=== PATIENT | female | born 1985 | race Caucasian/White ===

== ENCOUNTER 2020-06-25 18:40 | Inpatient (IN) | payer OTHER ==
[2020-06-25 19:02] VITALS: BMI 30.1
[2020-06-25] MEDS ORDERED: DEXTROSE 5%-LACTATED RINGERS 1,000 ML IV SCH (20:30)
[2020-06-25] MEDS ORDERED: OXYTOCIN 30 UNITS in 0.9% NS 30 UNIT/500 ML INFUS.BAG IVPB SCH (20:30)
[2020-06-25 20:55] LABS: BASO % 0.3 % (0-2.0); EOS % 0.4 % (0-4.5); HEMATOCRIT 33.5 % (32.4-45.2); HEMOGLOBIN 11.4 GM/dL (10.7-15.3); LYMPH % 11.9 % (8-40); MCH 31.1 pg (25.7-33.7); MEAN CELL VOLUME 91.4 fl (80-96); MEAN PLT VOLUME 8.7 fl (7.5-11.1); MONO % 5.6 % (3.8-10.2); NEUT % 81.8 % (42.8-82.8); PLATELET COUNT 282 K/MM3 (134-434); RBC 3.67 M/mm3 (3.60-5.2); RDW 13.2 % (11.6-15.6); WHITE BLOOD COUNT 10.8 K/mm3 (4.0-10.0)
[2020-06-25] MEDS ORDERED: OXYTOCIN 30 UNITS in 0.9% NS 30 UNIT/500 ML INFUS.BAG IVPB ONE (20:55)
[2020-06-25 21:02] LABS: INR 0.93 (0.83-1.09); PROTHROMBIN TIME (PATIENT) 11.5 SEC (9.7-13.0)
[2020-06-25 21:05] LABS: ACTIVATED PTT 24.4 SECONDS (25.2-36.5)
[2020-06-25 21:19] LABS: POTASSIUM 3.9 mmol/L (3.5-5.1)
[2020-06-25 21:22] LABS: CALCIUM 9.2 mg/dL (8.5-10.1)
[2020-06-25 21:23] LABS: BLOOD UREA NITROGEN 12.1 mg/dL (7-18)
[2020-06-25 21:26] LABS: CREATININE 0.6 mg/dL (0.55-1.3)
[2020-06-26] MEDS ORDERED: PROMETHAZINE HCL 25 MG/1 ML VIAL IVPB ONE (00:30)
[2020-06-26] MEDS ORDERED: BUTORPHANOL TARTRATE 2 MG/ML VIAL IVPB ONE (00:30)
[2020-06-26] MEDS ORDERED: BUTORPHANOL TARTRATE 2 MG/ML VIAL ONE (00:36)
[2020-06-26] MEDS ORDERED: AMPICILLIN SODIUM 2 GM VIAL ONE (00:36)
[2020-06-26] MEDS ORDERED: PROMETHAZINE HCL 25 MG/1 ML VIAL ONE (00:36)
[2020-06-26] MEDS ORDERED: AMPICILLIN - 2 GM in SODIUM CHLORIDE 100 ML IVPB ONE (00:45)
[2020-06-26] MEDS ORDERED: AMPICILLIN SODIUM 1 GM VIAL ONE ×2 (04:44→08:31)
[2020-06-26] MEDS: AMPICILLIN - 1 GM in DEXTROSE 5%-WATER 100 ML IVPB SCH ×2 (04:45→08:35)
[2020-06-26] MEDS ORDERED: PCA PUMP NR ONE ×2 (05:17→11:09)
[2020-06-26] MEDS ORDERED: FENTANYL/BUPIVACAINE/NS/PF - PCEA - 50 ML DISP.SYRIN EP ONE (05:17)
[2020-06-26] MEDS ORDERED: FENTANYL/BUPIVACAINE/NS/PF - PCEA - 50 ML DISP.SYRIN EP SCH (05:30)
[2020-06-26] MEDS ORDERED: NALOXONE HCL 0.4 MG/ML VIAL IVPUSH PRN (05:30)
[2020-06-26] MEDS ORDERED: BUPIVACAINE HCL/PF 0.25% (2.5MG/ML) 10 ML VIAL ONE (05:33)
[2020-06-26] MEDS ORDERED: OXYTOCIN 20 UNITS in 0.9% NS 20 UNIT/1,000 ML INFUS.BAG IV ONE (08:54)
[2020-06-26] MEDS ORDERED: IBUPROFEN 600 MG TABLET (FP) PO ONE (10:21)
[2020-06-26] MEDS ORDERED: ACETAMINOPHEN 325 MG TABLET (FP) ONE (10:21)
[2020-06-26 10:34] LABS: CORD BASE EXCESS -3.4 mmol/L (0-2); CORD HCO3 22.7 mmHg (20-29); CORD PCO2 44.6 mmHg (30-78); CORD pH 7.325 (7.14-7.44)
[2020-06-26 10:38] LABS: CORD PCO2 53.6 mmHg (30-78); CORD pH 7.25 (7.14-7.44)
[2020-06-26] MEDS ORDERED: BISACODYL 10 MG SUPP.RECT RC PRN (11:43)
[2020-06-26] MEDS ORDERED: IBUPROFEN 600 MG TABLET (FP) PO PRN (11:43)
[2020-06-26] MEDS ORDERED: ACETAMINOPHEN 325 MG TABLET (FP) PO PRN (11:43)
[2020-06-26] MEDS ORDERED: WITCH HAZEL 50% (TUCKS) 40 PAD/JAR PAD TP PRN (11:43)
[2020-06-26] MEDS ORDERED: METHYLERGONOVINE MALEATE 0.2 MG/1 ML AMP IM PRN (11:43)
[2020-06-26] MEDS ORDERED: BENZOCAINE 20% 57 GM BOTTLE TP PRN (11:43)
[2020-06-26] MEDS ORDERED: BENZOCAINE 28 GM HEMORRHOIDAL OINTMENT TP PRN (11:43)
[2020-06-27 08:22] LABS: BASO % 0.2 % (0-2.0); EOS % 0.4 % (0-4.5); HEMATOCRIT 30.5 % (32.4-45.2); HEMOGLOBIN 10.5 GM/dL (10.7-15.3); LYMPH % 11.8 % (8-40); MCH 31.3 pg (25.7-33.7); MCHC 34.6 g/dl (32.0-36.0); MEAN CELL VOLUME 90.5 fl (80-96); MEAN PLT VOLUME 8.6 fl (7.5-11.1); MONO % 5.4 % (3.8-10.2); NEUT % 82.2 % (42.8-82.8); PLATELET COUNT 265 K/MM3 (134-434); RBC 3.37 M/mm3 (3.60-5.2); RDW 13.1 % (11.6-15.6); WHITE BLOOD COUNT 17.6 K/mm3 (4.0-10.0)
[2020-06-27 11:02] VITALS: BP 127/76; PULSE 80; TEMP 98
[2020-06-27] MEDS ORDERED: SENNOSIDES/DOCUSATE COMBO (SENNA PLUS) TABLET (UD) PO PRN (22:00)
== END 2020-06-27 19:50 | disposition home or self-care (01) | DRG 807 ==
LOC: JLDR 18:40 → J3W 06-26 11:53
PROVIDERS: ADMIT Obstetrics & Gynecology; ATTEND Obstetrics & Gynecology
PROC: 3E033VJ Introduction of Other Hormone into Peripheral Vein, Percutaneous Approach (ICD-10-PCS; principal; 2020-06-25)
PROC: 10E0XZZ Delivery of Products of Conception, External Approach (ICD-10-PCS; 2020-06-26)
DX: O42.12 Full-term premature rupture of membranes, onset of labor more than 24 hours following rupture (principal); Z37.0 Single live birth; O99.892 Other specified diseases and conditions complicating childbirth; D27.1 Benign neoplasm of left ovary; Z3A.38 38 weeks gestation of pregnancy
CPT/HCPCS: 36415; 36600; 59409; 80048; 82803; 85025; 85610; 85730; 86780; 86850; 86900; 86901; C9803; U0003